=== PATIENT | female | born 1960 | race Caucasian/White ===

== ENCOUNTER 2016-03-31 07:15 | Day surgery (SDC) | payer OTHER ==
[~2016-03-31] VITALS: Ht 167.6 cm; Wt 60.0 kg
[~2016-03-31 07:15] MED LIST: ESTR1TAB24 PO; PROG100C6 PO; Sodium Chloride LOK Flush 10 mL Syringe IV PRN; fentaNYL-PF 50 mCg/mL 2 mL Inj IVPUSH PRN
[2016-03-31 07:44] VITALS: BP 126/73; PULSE 67; O2SAT 100
[2016-03-31] MEDS: 0.9% Sodium Chloride 1,000 ML IV SCH ×2 (07:45→07:57)
[2016-03-31 08:27] VITALS: BP 92/60; PULSE 66; O2SAT 95
[2016-03-31 08:36] VITALS: BP 90/57; PULSE 53; O2SAT 97
[2016-03-31 08:41] VITALS: BP 104/73; PULSE 57; O2SAT 100
--- NOTE | 2016-03-31 08:44 | ENDO ---
[address] [address] ENDOSCOPY PROCEDURE PATIENT: LUANN SMITH : 1960 MR#: [id number] ADMIT: 03/31/2016 JOB ID: [id number] DATE OF SERVICE: 03/31/2016 PROCEDURE PERFORMED: Colonoscopy. INDICATIONS: Screening. ASA CLASSIFICATION: The patient's ASA classification is I. MALLAMPATI SCORE: Mallampati score was 1. MEDICATIONS: 1. Versed 5 mg. 2. Fentanyl 125 mcg. INSTRUMENT USED: PCF-H180AL. PREPARATION QUALITY: Fair. PROCEDURE DETAILS: After informed consent was obtained, the patient was brought into the GI suite, where she was placed on oxygen via nasal cannula and monitored with continuous pulse oximeter, telemetry, and blood pressure monitoring. A time-out was performed. Then, she was placed in the left lateral decubitus position and medications were administered for sedation. Digital rectal exam was performed which was unremarkable. The colonoscope was then inserted into the rectum and advanced under direct visualization to the cecum, which was identified by the presence of the ileocecal valve and appendiceal orifice. Once the cecum was reached, the colonoscope was withdrawn back into the rectum, as the mucosa and lumen were examined. In the rectum, retroflexion was performed. Following retroflexion, remaining air in the rectum was suctioned, and procedure was completed. FINDINGS: 1. In the ascending colon, there was a diminutive polyp that was removed with cold biopsy forceps. 2. Retroflexed views in the rectum were unremarkable. IMPRESSION: Ascending colon polyp. RECOMMENDATIONS: Repeat colonoscopy pending polyp pathology results. COMPLICATIONS: None. ESTIMATED BLOOD LOSS: Less than 5 mL.
--- NOTE | 2016-04-03 10:37 | PATH ---
SURGICAL PATHOLOGY Attending Physician:Herbert Laurent CASE STATUS: Signed Out PATIENT NAME: LUANN SMITH PID: [id number] : 1960 DATE COLLECTED:03/31/2016 15:49 SPECIMEN: Colon, Biopsy CLINICAL HISTORY: A: ASCENDING COLON POLYP FINAL DIAGNOSIS: 1.ASCENDING COLON POLYP: SESSILE SERRATED ADENOMA. ICD10 CODE D12.6 GROSS DESCRIPTION: The specimen is received in one formalin filled container labeled with the patient's name, sublabeled "ascending colon polyp" are 3 fragments of tissue which aggregate to 0.4 x 0.3 x 0.2 CM. The specimen is entirely submitted in one cassette. 03/31/2016 [facility] MICRO DESCRIPTION: See diagnosis. ICD-9 CODES: CPT CODES: 1: 11632 Electronically Signed Out Lance Schneider MD [facility] [address], [place] [address] Technical component performed at [facility], [facility] [address], [place], [address]
== END 2016-03-31 23:59 | disposition home or self-care (01) ==
LOC: END 07:15
PROVIDERS: ATTEND Internal Medicine Gastroenterology
DX: Z12.11 Encounter for screening for malignant neoplasm of colon (principal); Z86.010 Personal history of colon polyps; D12.2 Benign neoplasm of ascending colon
CPT/HCPCS: 45380; J2250; J7030